=== PATIENT | female | born 1960 | race Caucasian/White ===

== ENCOUNTER 2017-08-27 01:34 | Emergency (ER) | payer OTHER ==
[~2017-08-27] VITALS: Ht 177.8 cm; Wt 72.6 kg
--- NOTE | 2017-08-27 01:49 | NUR ---
Patient BIB police and [facility] for c/o SI and ETOH intoxication. Per police, patient sent a text message to a friend stating "when she commits suicide..." Patient emotionally upset and loud upon arrival. Patient states that she did not sent the message and that the friend had sent the message in question. Patient gave permission to staff to look at text message which was clear that the message was received from the friend regarding suicide. Patient is A/O x4, ambulatory with a steady gait, cooperative with staff, states no SI/HI. TEREZAD performed MSE.
[2017-08-27] MEDS ORDERED: [UNRECOGNIZED DRUG - OTHER] (02:11)
[2017-08-27] MEDS ORDERED: CYCLOBENZAPR TAB 10MG (02:11)
--- NOTE | 2017-08-27 02:22 | NUR ---
Patient refused to provide urine specimen or allow blood draw. ERMD notified.
--- NOTE | 2017-08-27 03:22 | NUR ---
Patient discharged to home in stable conditon. Written and verbal after care instructions given. Patient verbalizes understanding of instructions.
== END 2017-08-27 03:23 | disposition home or self-care (01) ==
LOC: ER 01:38
DX: Z00.00 Encounter for general adult medical examination without abnormal findings (principal); R45.851 Suicidal ideations; Z88.2 Allergy status to sulfonamides; Z88.8 Allergy status to other drugs, medicaments and biological substances
CPT/HCPCS: A4663